=== PATIENT | female | born 1945 | race Caucasian/White ===

== ENCOUNTER 2018-05-19 11:51 | Observation (INO) | payer MEDICAID, MEDICARE ==
[2018-05-19 12:17] LABS: Hematocrit 44.1 % (37.0-47.0); Hemoglobin 14.4 gm/dL (12.5-16.0); Mean Cell Volume 89.6 fl (78-100); Mean Corpuscular Hemoglobin 29.3 pg (27-31); Mean Corpuscular Hgb Conc 32.7 g/dl (32-36); Mean Platelet Volume 10.1 fl (8-12.5); Neutrophil # 13.5 K/mm3 (1.3-6.0); Neutrophil % 84.2 % (42-75.0); Platelet Count 421 K/mm3 (150-450); Red Blood Count 4.92 M/mm3 (4.2-5.4); Red Cell Distribution Width 12.3 % (11.5-14.0)
[2018-05-19 12:18] LABS: Urine Bilirubin Negative (NEGATIVE); Urine Blood Negative /ul (NEGATIVE); Urine Ketone Negative (NEGATIVE); Urine Protein Negative (NEGATIVE); Urine Specific Gravity 1.025 SP.GR. (1.005-1.010); Urine Urobilinogen Normal (NORMAL)
[2018-05-19 12:33] LABS: Urine Appearance Cloudy (CLEAR); Urine Bacteria 3+; Urine Color Yellow; Urine Nitrite Positive (NEGATIVE); Urine RBC None Seen /hpf (0-5)
[2018-05-19 12:39] LABS: Albumin * 2.9 gm/dl (3.4-5.0); BUN/Creatinine Ratio 28.6 (9.0-21.6); Bilirubin, Total 0.5 mg/dL (0.0-1.1); Ca. Corrected For Albumin 9.3 mg/dL (8.4-10.2); Calcium * 8.7 mg/dL (7.9-10.9); Magnesium 2.1 mg/dL (1.2-2.8); Total Protein 6.9 gm/dL (6.2-8.2)
--- NOTE | 2018-05-19 13:42 | ERNOTE ---
Medical Problem HPI - General Chief Complaint: General Assessment Time Seen by Provider: 05/19/18 11:53 Source: family, EMS Exam Limitations: no limitations - Immun/Allergies/Home Medications Immunizations: IMMUNIZATION HX Immunizations Up to Date Yes History of Influenza Vaccine Yes Hx Pneumococcal Vaccination Yes Allergies/Adverse Reactions: Allergies No Known Allergies Allergy (Verified 05/08/18 07:58) Home Medications: HOME MEDICATIONS acetaminophen 325 mg tablet 650 mg PO Q4H PRN tab 05/08/18 [Last Taken Unknown] atorvastatin 10 mg tablet 10 mg PO DAILY 05/08/18 [Last Taken Unknown] dipyridamole 50 mg tablet 100 mg PO QID tab 05/08/18 [Last Taken Unknown] escitalopram 5 mg tablet 5 mg PO DAILY 05/08/18 [Last Taken Unknown] levetiracetam 750 mg tablet 750 mg PO BID 05/08/18 [Last Taken Unknown] levothyroxine 25 mcg capsule 25 mcg PO DAILY 05/08/18 [Last Taken Unknown] lorazepam 0.5 mg tablet 0.5 mg PO TID 05/08/18 [Last Taken Unknown] metoprolol tartrate 25 mg tablet 25 mg PO BID 05/08/18 [Last Taken Unknown] miscellaneous medical supply misc See Dose Instructions .ROUTE .MEDSUPPLY #1 ea 05/08/18 [Last Taken Unknown] miscellaneous medical supply misc See Dose Instructions .ROUTE .MEDSUPPLY #1 ea 05/08/18 [Last Taken Unknown] olanzapine 5 mg tablet 5 mg PO QPM 05/08/18 [Last Taken Unknown] hydrocodone 5 mg-acetaminophen 325 mg tablet 1 tab PO Q6H PRN #30 tab 05/15/18 [ Last Taken Unknown] - History of Present History Narrative: Patient was seen here approximately 10 days ago from a fall, where she had fractured both her pelvis as well as her sacrum. Family was relatively insistent that she go home, and she went home on pain medication and is managed to deteriorate since going home. She now comes in in a slightly weakened condition prior to the fracture, she has bilateral decubitus ulcers is having even a worse time trying to move around. She is a difficult patient to assess because of the previous strokes and expressive aphasia. Timing: getting worse Severity: moderate Review of Systems - Review of Systems Constitutional: Present: See HPI EYE: Present: no symptoms reported ENT: Present: no symptoms reported Respiratory: Present: no symptoms reported Cardiology: Present: no symptoms reported Gastrointestinal/Abdominal: Present: no symptoms reported Genitourinary: Present: no symptoms reported Musculoskeletal: Present: See HPI Skin: Present: no symptoms reported Neurological: Present: See HPI Endocrine: Present: no symptoms reported Hematologic/Lymphatic: Present: no symptoms reported Psych: Present: no symptoms reported Medical History (Last Updated 05/19/18 @ 11:54 by Jermaine Garcia RN) Aphasia CVA (cerebral vascular accident) Onset Date: ~07/2014 Dysphagia Hemiparesis Hip fracture Hypercholesteremia Left-sided neglect Mitral regurgitation Paresis Seizure disorder Sinus tachycardia Speech disturbance Epilepsy Hyperlipidemia History of MRSA infection Surgical History: Surgical History (Last Reviewed 05/19/18 @ 11:54 by Jermaine Garcia RN) History of esophagogastroduodenoscopy (EGD) Onset Date: ~08/30/15 Hx of colonoscopy Onset Date: Unknown S/P percutaneous endoscopic gastrostomy (PEG) tube placement Onset Date: ~ Family History: Family History (Last Updated 05/08/18 @ 11:01 by Laurie Murray) Mother Breast cancer CVA (cerebral vascular accident) Sister Breast cancer Brother Colon cancer Social History: Preferred Language Macedonian Do you have any orthodox or No cultural preference? Smoking Status Former smoker Abuse History No History of abuse Psych History Hx of Anxiety,Hx of Depression Alcohol Use sober Physical Exam - Physical Exam General Appearance: Present: wd/wn, alert, moderate distress - possibly, although the only way to tell for certain is with a grimace and the moaning that we have listed for the patient Eye Exam: Normal inspection: bilateral, PERRL: bilateral Ears, Nose, Throat: Present: normal ENT inspection, H, normal pharynx Neck: Present: normal inspection, nontender Respiratory: Present: no respiratory distress, normal breath sounds, no accessory muscle use, chest nontender, lungs clear Cardiovascular/Chest: Present: regular rate, rhythm, no murmur, normal peripheral pulses Gastrointestinal/Abdominal: Present: normal bowel sounds, nontender, nondistended, soft, no organomegaly Rectal Exam: Present: deferred Back Exam: Present: normal inspection, normal range of motion Extremity Exam: Present: normal inspection, normal range of motion, no edema, bony tenderness Neurological Exam: Present: alert, oriented, normal mood/affect Skin Exam: Present: warm/dry, other - bilateral decubitus ulcers on both buttocks just adjacent to the sacrum Lymphatic Exam: Present: no adenopathy ED Progress - Results and Orders Patient's Lab Results:: I have reviewed the patient's lab results. - Vital Signs Patient's Vital Signs:: I have reviewed the patient's vital signs. Vital Signs: Vital Signs 05/19/18 11:51 05/19/18 12:36 05/19/18 12:45 Temperature 37 C 37 C 37 C Pulse Rate 102 H 102 H 92 Respiratory Rate 28 H 28 H 28 H Blood Pressure 133/77 131/81 122/80 O2 Sat by Pulse Oximetry 92 L 92 L 92 L 05/19/18 13:00 Temperature 37 C Pulse Rate 102 H Respiratory Rate 28 H Blood Pressure 137/83 O2 Sat by Pulse Oximetry 93 - X-Ray X-Ray #1 X-Ray: chest Interpretation: Reviewed by me X-Ray #2 X-Ray: foot Interpretation: Reviewed by me X-Ray #3 X-Ray: pelvis Interpretation: Reviewed by me - Progress/Reassessment Chief Complaint: General Assessment Plan - Plan Plan: Patient has clearly failed outpatient treatment and the family and the patient need more assistance in caring for this patient. She now has decubitus ulcers that according to the are worsening, she needs some form of PT/OT evaluation and perhaps ia egg crate mattress would be reasonable as well at home. Departure Clinical Impression: Failure of outpatient treatment, Intractable pain Pelvis fracture Qualifiers: Encounter type: initial encounter Pelvic bone location: pubis Sublocation of pubis: unspecified portion of pubis Fracture type: closed Laterality: left Qualified Code(s): S32.502A - Unspecified fracture of left pubis, initial encounter for closed fracture Sacral fracture, closed Qualifiers: Encounter type: subsequent encounter Zone of sacrum fracture: unspecified portion of sacrum Fracture healing: with routine healing Qualified Code(s): S32.10XD - Unspecified fracture of sacrum, subsequent encounter for fracture with routine healing UTI (urinary tract infection) Qualifiers: Urinary tract infection type: acute cystitis Hematuria presence: without hematuria Qualified Code(s): N30.00 - Acute cystitis without hematuria Decubitus ulcers Qualifiers: Pressure injury location: buttock Pressure injury stage: unspecified pressure injury stage Laterality: unspecified laterality Qualified Code(s): L89.309 - Pressure ulcer of unspecified buttock, unspecified stage - Departure Disposition: Still a patient Condition: Fair Referrals: Vasile Bullard MD [Primary Care Provider] -
[2018-05-19] MEDS ORDERED: fentaNYL CITRATE/PF 50 MCG/ML AMPUL IV ONE (13:47)
[2018-05-19] MEDS ORDERED: fentaNYL CITRATE/PF 50 MCG/ML AMPUL ONE (13:56)
[2018-05-19] MEDS: CIPROFLOXACIN IN 5 % DEXTROSE 400 MG/200 ML BAG IV SCH (14:54)
--- NOTE | 2018-05-19 16:53 | HP ---
Chief Complaint - Chief Complaint Date of Service: 05/19/18 Time of Service: 16:52 Chief Complaint: weakness and decubitus ulcers History of Present Illness: Ro Desouza, is a 73-year-old white female, who was admitted on 2017 for increasing weakness and decubitus ulcer. 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 Due to her mental status and aphasia, I am not able to get history and physical from the patient. It is based mostly on the emergency room notes and from the behavioral health case manager. 10 days prior to admission the patient fell down in the hospital and brought her to the [facility] practice clinic where she was found to have a pelvic fracture. The family insisted that she go home and have home health follow her up there. The brought her back today because he has noticed the patient is weaker and has developed sacral decubitus ulcers. In the ED , she was found to have UTI and was started on IV Cipro. She was then admitted for observation for pain control and PT/OT evaluation. Medical History (Last Updated 05/19/18 @ 11:54 by Jermaine Garcia RN) Aphasia CVA (cerebral vascular accident) Onset Date: ~07/2014 Dysphagia Hemiparesis Hip fracture Hypercholesteremia Left-sided neglect Mitral regurgitation Paresis Seizure disorder Sinus tachycardia Speech disturbance Epilepsy Hyperlipidemia History of MRSA infection Surgical History: Surgical History (Last Reviewed 05/19/18 @ 11:54 by Jermaine Garcia RN) History of esophagogastroduodenoscopy (EGD) Onset Date: ~08/30/15 Hx of colonoscopy Onset Date: Unknown S/P percutaneous endoscopic gastrostomy (PEG) tube placement Onset Date: ~ Family History: Family History (Last Updated 05/08/18 @ 11:01 by Laurie Murray) Mother Breast cancer CVA (cerebral vascular accident) Sister Breast cancer Brother Colon cancer Social History: Patient Lives/Resources Home Utilized Occupation retired Preferred Language Serbian Do you have any episcopal or No cultural preference? Smoking Status Former smoker Have you smoked in the past 12 No months Abuse History No History of abuse Psych History Hx of Anxiety,Hx of Depression Alcohol Use sober Review Of Systems (GEN) - Review of Systems Misc: All systems neg except as marked - Review of systems is unobtainable due to patient's mental status and aphasia. Immunizations: IMMUNIZATION HX Immunizations Up to Date Yes History of Influenza Vaccine Yes Hx Pneumococcal Vaccination Yes Allergies/Adverse Reactions: Allergies Allergy/AdvReac Type Severity Reaction Status Date / Time No Known Allergies Allergy Verified 05/08/18 07:58 Home Medications: HOME MEDICATIONS acetaminophen 325 mg tablet 650 mg PO Q4H PRN tab 05/08/18 [Last Taken Unknown] atorvastatin 10 mg tablet 10 mg PO DAILY 05/08/18 [Last Taken Unknown] dipyridamole 50 mg tablet 100 mg PO QID tab 05/08/18 [Last Taken Unknown] escitalopram 5 mg tablet 5 mg PO DAILY 05/08/18 [Last Taken Unknown] levetiracetam 750 mg tablet 750 mg PO BID 05/08/18 [Last Taken Unknown] levothyroxine 25 mcg capsule 25 mcg PO DAILY 05/08/18 [Last Taken Unknown] lorazepam 0.5 mg tablet 0.5 mg PO TID 05/08/18 [Last Taken Unknown] metoprolol tartrate 25 mg tablet 25 mg PO BID 05/08/18 [Last Taken Unknown] olanzapine 5 mg tablet 5 mg PO QPM 05/08/18 [Last Taken Unknown] hydrocodone 5 mg-acetaminophen 325 mg tablet 1 tab PO Q6H PRN #30 tab 05/15/18 [ Last Taken Unknown] Bisacodyl [Dulcolax Suppository] 10 mg RC DAILY PRN 05/19/18 [Last Taken Unknown ] Exam - Exam Vital Signs: Vital Signs - Last Taken Temp 37 C 05/19/18 14:03 Pulse 94 05/19/18 14:03 Resp 28 H 05/19/18 14:03 BP 120/63 05/19/18 14:03 Pulse Ox 93 05/19/18 14:03 Constitutional: Present: Alert - AAO x 1, Cooperative ENT Exam: Present: hearing grossly normal - looks at you with conversation Eye Exam: bilateral eye: normal inspection, PERRL, EOMI Neck: Present: supple Respiratory: Present: normal breath sounds, No rales, No wheezing Cardiovascular/Chest: Present: regular rate, rhythm, no JVD, no murmur Abdomen: Present: Normal bowel sounds, soft, nontender, nondistended Extremity: Present: no pedal edema, no calf tenderness Skin Exam: Present: other - decubitus ulcer, sacral area Neurologic: Present: alert, aphasia, motor weakness - left hemiparesis Diagnostic Studies: Abnormal Lab Results 05/19/18 05/19/18 05/19/18 Range/Units 12:01 12:14 12:14 WBC 16.0 H (4.0-10.5) K/mm3 Immature Gran # (Auto) 0.07 H (0.000-0.0310) K/mm3 Neutrophils % 84.2 H (42-75.0) % Lymphocytes % 8.3 L (20-51) % Neutrophils # 13.5 H (1.3-6.0) K/mm3 Lymphocytes # 1.33 L (1.5-3.5) k/mm3 BUN 28 H (3-23) mg/dL Est GFR (Non-Af Amer) 59 L (60-130) mL/min BUN/Creatinine Ratio 28.6 H (9.0-21.6) Random Glucose 160 H (70-110) mg/dL Alkaline Phosphatase 308 H (50-170) U/L Albumin 2.9 L (3.4-5.0) gm/dl Urine Nitrate Positive H (NEGATIVE) Ur Leukocyte Esterase 75 H (NEGATIVE) /ul Urine WBC 10-25 H (0-5) /hpf Ur Epithelial Cells 10-25 H (0-5) /hpf Urine Bacteria 3+ H (NONE) Laboratory Results WBC 16.0 K/mm3 (4.0-10.5) H 05/19/18 12:14 RBC 4.92 M/mm3 (4.2-5.4) 05/19/18 12:14 Hgb 14.4 gm/dL (12.5-16.0) 05/19/18 12:14 Hct 44.1 % (37.0-47.0) 05/19/18 12:14 MCV 89.6 fl (78-100) 05/19/18 12:14 MCH 29.3 pg (27-31) 05/19/18 12:14 MCHC 32.7 g/dl (32-36) 05/19/18 12:14 RDW 12.3 % (11.5-14.0) 05/19/18 12:14 Plt Count 421 K/mm3 (150-450) 05/19/18 12:14 MPV 10.1 fl (8-12.5) 05/19/18 12:14 Immature Gran % (Auto) 0.40 % (0.001-0.429) 05/19/18 12:14 Immature Gran # (Auto) 0.07 K/mm3 (0.000-0.0310) H 05/19/18 12:14 Neutrophils % 84.2 % (42-75.0) H 05/19/18 12:14 Lymphocytes % 8.3 % (20-51) L 05/19/18 12:14 Monocytes % 5.6 % (0.0-9) 05/19/18 12:14 Eosinophils % 1.0 % (0.0-3.0) 05/19/18 12:14 Basophils % 0.5 % (0.0-1.0) 05/19/18 12:14 Nucleated RBC % 0.0 k/mm3 (0-1) 05/19/18 12:14 Neutrophils # 13.5 K/mm3 (1.3-6.0) H 05/19/18 12:14 Lymphocytes # 1.33 k/mm3 (1.5-3.5) L 05/19/18 12:14 Monocytes # 0.9 k/mm3 (0.0-1.0) 05/19/18 12:14 Eosinophils # 0.2 k/mm3 (0.0-0.7) 05/19/18 12:14 Absolute Basophils 0.1 k/mm3 (0.0-0.1) 05/19/18 12:14 Sodium 138 mmol/L (132-142) 05/19/18 12:14 Plasma Sodium 139 mmol/L (130-142) 05/19/18 12:14 Potassium 4.0 mmol/L (3.4-4.6) 05/19/18 12:14 Chloride 103 mmol/L (97-106) 05/19/18 12:14 Carbon Dioxide 27.0 mmol/L (24-32.6) 05/19/18 12:14 Anion Gap 12.0 mmol/L (6.8-13.8) 05/19/18 12:14 BUN 28 mg/dL (3-23) H 05/19/18 12:14 Creatinine 0.98 mg/dL (0.4-1.4) 05/19/18 12:14 Est GFR (Non-Af Amer) 59 mL/min (60-130) L 05/19/18 12:14 BUN/Creatinine Ratio 28.6 (9.0-21.6) H 05/19/18 12:14 Random Glucose 160 mg/dL (70-110) H 05/19/18 12:14 Calcium 8.7 mg/dL (7.9-10.9) 05/19/18 12:14 Calcium Adj for Albumin 9.3 mg/dL (8.4-10.2) 05/19/18 12:14 Magnesium 2.1 mg/dL (1.2-2.8) 05/19/18 12:14 Total Bilirubin 0.5 mg/dL (0.0-1.1) 05/19/18 12:14 AST 26 U/L (0-48) 05/19/18 12:14 ALT 37 U/L (19-67) 05/19/18 12:14 Alkaline Phosphatase 308 U/L (50-170) H 05/19/18 12:14 Total Protein 6.9 gm/dL (6.2-8.2) 05/19/18 12:14 Albumin 2.9 gm/dl (3.4-5.0) L 05/19/18 12:14 Urine Color Yellow 05/19/18 12:01 Urine Appearance Cloudy (CLEAR) 05/19/18 12:01 Urine pH 6.0 pH (5.0-7.0) 05/19/18 12:01 Ur Specific [place] 1.025 SP.GR. (1.005-1.010) 05/19/18 12:01 Urine Protein Negative mg/dL (NEGATIVE) 05/19/18 12:01 Urine Glucose (UA) Negative mg/dL (NEGATIVE) 05/19/18 12:01 Urine Ketones Negative mg/dL (NEGATIVE) 05/19/18 12:01 Urine Blood Negative /ul (NEGATIVE) 05/19/18 12:01 Urine Nitrate Positive (NEGATIVE) H 05/19/18 12:01 Urine Bilirubin Negative mg/dl (NEGATIVE) 05/19/18 12:01 Urine Urobilinogen Normal EU/dl (NORMAL) 05/19/18 12:01 Ur Leukocyte Esterase 75 /ul (NEGATIVE) H 05/19/18 12:01 Urine RBC None seen /hpf (0-5) 05/19/18 12:01 Urine WBC 10-25 /hpf (0-5) H 05/19/18 12:01 Ur Epithelial Cells 10-25 /hpf (0-5) H 05/19/18 12:01 Urine Bacteria 3+ (NONE) H 05/19/18 12:01 Urine Culture Comments Culture to follow 05/19/18 12:01 Assessment/Plan - Assessment/Plan (1) Decubitus ulcers Problem: Acute Qualifiers: Pressure injury location: buttock Pressure injury stage: unspecified pressure injury stage Laterality: unspecified laterality Qualified Code(s): L89.309 - Pressure ulcer of unspecified buttock, unspecified stage (2) Pelvis fracture Problem: Acute Qualifiers: Encounter type: initial encounter Pelvic bone location: pubis Sublocation of pubis: unspecified portion of pubis Fracture type: closed Laterality: left Qualified Code(s): S32.502A - Unspecified fracture of left pubis, initial encounter for closed fracture (3) Sacral fracture, closed Problem: Acute Qualifiers: Encounter type: subsequent encounter Zone of sacrum fracture: unspecified portion of sacrum Fracture healing: with routine healing Qualified Code(s): S32.10XD - Unspecified fracture of sacrum, subsequent encounter for fracture with routine healing (4) UTI (urinary tract infection) Problem: Acute Qualifiers: Urinary tract infection type: acute cystitis Hematuria presence: without hematuria Qualified Code(s): N30.00 - Acute cystitis without hematuria (5) Failure of outpatient treatment Problem: Acute (6) CVA, old, aphasia Problem: Chronic
[2018-05-19] MEDS ORDERED: ACETAMINOPHEN 325 MG TABLET PO PRN (18:04)
[2018-05-19] MEDS ORDERED: HYDROcodone/ACETAMINOPHEN 1 EACH TABLET PO PRN (18:04)
[2018-05-19] MEDS ORDERED: BISACODYL 10 MG SUPP.RECT RC PRN (18:04)
[2018-05-19] MEDS ORDERED: levETIRAcetam 100 MG/ML BTL PO SCH (21:00)
[2018-05-19] MEDS ORDERED: levETIRAcetam 500 MG TABLET ONE (21:16)
[2018-05-19] MEDS: DIPYRIDAMOLE 25 MG TABLET PO SCH (21:19)
[2018-05-19] MEDS: METOPROLOL TARTRATE 25 MG TABLET PO SCH (21:20)
[2018-05-19] MEDS: levETIRAcetam 500 MG TABLET PO SCH (23:00)
[2018-05-20] MEDS: CIPROFLOXACIN IN 5 % DEXTROSE 400 MG/200 ML BAG IV SCH (01:36)
[2018-05-20 04:40] LABS: Hematocrit 40.2 % (37.0-47.0); Hemoglobin 13.2 gm/dL (12.5-16.0); Mean Cell Volume 88.9 fl (78-100); Mean Corpuscular Hemoglobin 29.2 pg (27-31); Mean Corpuscular Hgb Conc 32.8 g/dl (32-36); Neutrophil # 9.2 K/mm3 (1.3-6.0); Neutrophil % 74.8 % (42-75.0); Platelet Count 404 K/mm3 (150-450); Red Blood Count 4.52 M/mm3 (4.2-5.4); Red Cell Distribution Width 12.4 % (11.5-14.0); White Blood Count 12.3 K/mm3 (4.0-10.5)
[2018-05-20 04:52] LABS: Albumin * 2.7 gm/dl (3.4-5.0); Anion Gap 9.8 mmol/L (6.8-13.8); BUN/Creatinine Ratio 30.1 (9.0-21.6); Bilirubin, Total 0.6 mg/dL (0.0-1.1); Ca. Corrected For Albumin 9.1 mg/dL (8.4-10.2); Calcium * 8.4 mg/dL (7.9-10.9); Carbon Dioxide 28.9 mmol/L (24-32.6); Potassium 3.7 mmol/L (3.4-4.6); Total Protein 6.5 gm/dL (6.2-8.2)
--- NOTE | 2018-05-20 05:39 | PN ---
<ManojJennifer - Last Filed: 05/20/18 06:39> Subjective - Date and Time Seen Date: 05/20/18 Time: 05:33 Subjective Narrative: patient seen this morning in bed no acute distress. Objective - Review of Systems Generalized/Overall Review: Reports: No Symptoms Reported - unable to obtain ROS information as pt is aphasic - Vitals Vitals: Last Vital Signs Temp 36.6 C 05/20/18 03:20 Pulse 85 05/20/18 03:20 Resp 18 05/20/18 03:20 BP 118/58 05/20/18 03:20 Pulse Ox 95 05/20/18 03:20 - Abnormal Lab Findings Abnormal Lab Findings: Abnormal Lab Results 05/19/18 05/19/18 05/19/18 Range/Units 12:01 12:14 12:14 WBC 16.0 H (4.0-10.5) K/mm3 Immature Gran # (Auto) 0.07 H (0.000-0.0310) K/mm3 Neutrophils % 84.2 H (42-75.0) % Lymphocytes % 8.3 L (20-51) % Neutrophils # 13.5 H (1.3-6.0) K/mm3 Lymphocytes # 1.33 L (1.5-3.5) k/mm3 BUN 28 H (3-23) mg/dL Est GFR (Non-Af Amer) 59 L (60-130) mL/min BUN/Creatinine Ratio 28.6 H (9.0-21.6) Random Glucose 160 H (70-110) mg/dL Alkaline Phosphatase 308 H (50-170) U/L Albumin 2.9 L (3.4-5.0) gm/dl Urine Nitrate Positive H (NEGATIVE) Ur Leukocyte Esterase 75 H (NEGATIVE) /ul Urine WBC 10-25 H (0-5) /hpf Ur Epithelial Cells 10-25 H (0-5) /hpf Urine Bacteria 3+ H (NONE) 05/20/18 05/20/18 Range/Units 04:10 04:10 WBC 12.3 H D (4.0-10.5) K/mm3 Immature Gran # (Auto) 0.05 H (0.000-0.0310) K/mm3 Neutrophils % (42-75.0) % Lymphocytes % 16.1 L (20-51) % Neutrophils # 9.2 H (1.3-6.0) K/mm3 Lymphocytes # (1.5-3.5) k/mm3 BUN (3-23) mg/dL Est GFR (Non-Af Amer) (60-130) mL/min BUN/Creatinine Ratio 30.1 H (9.0-21.6) Random Glucose (70-110) mg/dL Alkaline Phosphatase 295 H (50-170) U/L Albumin 2.7 L (3.4-5.0) gm/dl Urine Nitrate (NEGATIVE) Ur Leukocyte Esterase (NEGATIVE) /ul Urine WBC (0-5) /hpf Ur Epithelial Cells (0-5) /hpf Urine Bacteria (NONE) - Exam Constitutional: Present: Cooperative - follow simple commands, No distress ENT Exam: Present: hearing grossly normal, other - aphasia Neck: Present: non-tender Breasts: Present: Exam deferred Respiratory: Present: chest non-tender, lungs clear, normal breath sounds, no respiratory distress Cardiovascular/Chest: Present: normal peripheral pulses, regular rate, rhythm, no edema, systolic murmur Abdomen: Present: Normal bowel sounds, soft, nontender /Rectal: Present: Exam deferred Extremity: Present: other - Limited range of motion Skin Exam: Present: warm/dry, other - sacral ulcer Neurologic: Present: normal mood/affect, aphasia, motor weakness, sensory deficit Appearance: Present: appropriate appearance Eye contact: Present: good eye contact Assessment/Plan - Problems/Diagnosis (1) Pelvis fracture Problem: Acute Qualifiers: Encounter type: initial encounter Pelvic bone location: pubis Sublocation of pubis: unspecified portion of pubis Fracture type: closed Laterality: left Qualified Code(s): S32.502A - Unspecified fracture of left pubis, initial encounter for closed fracture Narrative: X-Ray pelvis: 1. Stable fractures of the left sacrum, left pubic bone. 2. No new acute osseous finding. Evaluation somewhat limited by positioning. pain control and Pt/OT eval and treatment (2) UTI (urinary tract infection) Problem: Acute Qualifiers: Urinary tract infection type: acute cystitis Hematuria presence: without hematuria Qualified Code(s): N30.00 - Acute cystitis without hematuria Narrative: on adm WBC 16.0--->12.0 continue with Cipro antibiotics monitor CBC (3) Decubitus ulcers Problem: Acute Qualifiers: Pressure injury location: buttock Pressure injury stage: unspecified pressure injury stage Laterality: unspecified laterality Qualified Code(s): L89.309 - Pressure ulcer of unspecified buttock, unspecified stage Narrative: wound care Activity increased ambulating. (4) Failure of outpatient treatment Problem: Acute (5) Intractable pain Problem: Acute <Trish Maciaschloe - Last Filed: 05/26/18 10:57> Objective - Vitals Vitals: Last Vital Signs Temp 37.0 C 05/20/18 14:00 Pulse 96 05/20/18 14:00 Resp 18 05/20/18 14:00 BP 115/66 05/20/18 14:00 Pulse Ox 94 05/20/18 14:00 Assessment/Plan - Problems/Diagnosis (1) Decubitus ulcers Problem: Acute Qualifiers: Pressure injury location: buttock Pressure injury stage: unspecified pressure injury stage Laterality: unspecified laterality Qualified Code(s): L89.309 - Pressure ulcer of unspecified buttock, unspecified stage (2) Pelvis fracture Problem: Acute Qualifiers: Encounter type: initial encounter Pelvic bone location: pubis Sublocation of pubis: unspecified portion of pubis Fracture type: closed Laterality: left Qualified Code(s): S32.502A - Unspecified fracture of left pubis, initial encounter for closed fracture (3) Sacral fracture, closed Problem: Acute Qualifiers: Encounter type: subsequent encounter Zone of sacrum fracture: unspecified portion of sacrum Fracture healing: with routine healing Qualified Code(s): S32.10XD - Unspecified fracture of sacrum, subsequent encounter for fracture with routine healing (4) UTI (urinary tract infection) Problem: Acute Qualifiers: Urinary tract infection type: acute cystitis Hematuria presence: without hematuria Qualified Code(s): N30.00 - Acute cystitis without hematuria (5) Failure of outpatient treatment Problem: Acute (6) CVA, old, aphasia Problem: Chronic
[2018-05-20] MEDS ORDERED: LEVOTHYROXINE SODIUM 25 MCG TABLET PO SCH (07:00)
[2018-05-20] MEDS ORDERED: ROSUVASTATIN CALCIUM 10 MG TABLET PO SCH ×2 (09:00→21:00)
[2018-05-20] MEDS ORDERED: ESCITALOPRAM OXALATE 10 MG TAB PO SCH (09:00)
--- NOTE | 2018-05-20 09:23 | DS ---
(1) Decubitus ulcers Problem: Acute Qualifiers: Pressure injury location: buttock Pressure injury stage: unspecified pressure injury stage Laterality: unspecified laterality Qualified Code(s): L89.309 - Pressure ulcer of unspecified buttock, unspecified stage (2) Pelvis fracture Problem: Acute Qualifiers: Encounter type: initial encounter Pelvic bone location: pubis Sublocation of pubis: unspecified portion of pubis Fracture type: closed Laterality: left Qualified Code(s): S32.502A - Unspecified fracture of left pubis, initial encounter for closed fracture (3) Sacral fracture, closed Problem: Acute Qualifiers: Encounter type: subsequent encounter Zone of sacrum fracture: unspecified portion of sacrum Fracture healing: with routine healing Qualified Code(s): S32.10XD - Unspecified fracture of sacrum, subsequent encounter for fracture with routine healing (4) UTI (urinary tract infection) Problem: Acute Qualifiers: Urinary tract infection type: acute cystitis Hematuria presence: without hematuria Qualified Code(s): N30.00 - Acute cystitis without hematuria (5) Failure of outpatient treatment Problem: Acute (6) CVA, old, aphasia Problem: Chronic Description of Stay: Ro Desouza, is a 73-year-old white female, who was admitted on 2017 for increasing weakness and decubitus ulcer. 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 Due to her mental status and aphasia, I am not able to get history and physical from the patient. It is based mostly on the emergency room notes and from the case specialist. 10 days prior to admission the patient fell down in the hospital and brought her to the [facility] where she was found to have a pelvic fracture. The family insisted that she go home and have home health follow her up there. The brought her back today because he has noticed the patient is weaker and has developed sacral decubitus ulcers. In the ED , she was found to have UTI and was started on IV Cipro. She was then admitted for observation for pain control and PT/OT evaluation. We a wound consult and she is stable to be discharged and she will have daily wound care and daily coverage after applying daily Santyl. She will also need a wheelchair for increased mobility. Procedures Performed: none Results and Findings: [facility] 05/19/18 12:01 Urine,Catheterized Urine Culture - Preliminary Gram Negative Bacilli Lab Pending Results 05/19/18 12:01: Urine Color Yellow, Urine Appearance Cloudy, Urine pH 6.0, Ur Specific [place] 1.025, Urine Protein Negative, Urine Glucose (UA) Negative, Urine Ketones Negative, Urine Blood Negative, Urine Nitrate Positive H, Urine Bilirubin Negative, Urine Urobilinogen Normal, Ur Leukocyte Esterase 75 H, Urine RBC None seen, Urine WBC 10-25 H, Ur Epithelial Cells 10-25 H, Urine Bacteria 3+ H, Urine Culture Comments Culture to follow 05/19/18 12:14: WBC 16.0 H, RBC 4.92, Hgb 14.4, Hct 44.1, MCV 89.6, MCH 29.3, MCHC 32.7, RDW 12.3, Plt Count 421, MPV 10.1, Immature Gran % (Auto) 0.40, Immature Gran # (Auto) 0.07 H, Neutrophils % 84.2 H, Lymphocytes % 8.3 L, Monocytes % 5.6, Eosinophils % 1.0, Basophils % 0.5, Nucleated RBC % 0.0, Neutrophils # 13.5 H, Lymphocytes # 1.33 L, Monocytes # 0.9, Eosinophils # 0.2, Absolute Basophils 0.1 05/19/18 12:14: Sodium 138, Plasma Sodium 139, Potassium 4.0, Chloride 103, Carbon Dioxide 27.0, Anion Gap 12.0, BUN 28 H, Creatinine 0.98, Est GFR (Non-Af Amer) 59 L, BUN/Creatinine Ratio 28.6 H, Random Glucose 160 H, Calcium 8.7, Calcium Adj for Albumin 9.3, Magnesium 2.1, Total Bilirubin 0.5, AST 26, ALT 37 , Alkaline Phosphatase 308 H, Total Protein 6.9, Albumin 2.9 L 05/20/18 04:10: Sodium 136, Plasma Sodium 136, Potassium 3.7, Chloride 101, Carbon Dioxide 28.9, Anion Gap 9.8, BUN 22, Creatinine 0.73, Est GFR (Non-Af Amer) 83 D, BUN/Creatinine Ratio 30.1 H, Random Glucose 110 D, Calcium 8.4, Calcium Adj for Albumin 9.1, Total Bilirubin 0.6, AST 26, ALT 32, Alkaline Phosphatase 295 H, Total Protein 6.5, Albumin 2.7 L 05/20/18 04:10: WBC 12.3 H D, RBC 4.52, Hgb 13.2, Hct 40.2, MCV 88.9, MCH 29.2, MCHC 32.8, RDW 12.4, Plt Count 404, MPV 10.0, Immature Gran % (Auto) 0.40, Immature Gran # (Auto) 0.05 H, Neutrophils % 74.8, Lymphocytes % 16.1 L, Monocytes % 7.1, Eosinophils % 1.0, Basophils % 0.6, Nucleated RBC % 0.0, Neutrophils # 9.2 H, Lymphocytes # 1.99, Monocytes # 0.9, Eosinophils # 0.1, Absolute Basophils 0.1 Discharge Location: Home Disposition: Home Health Service [facility] Agency: [facility] Home Health Condition: Fair Face to Face Encounter completed per [facility] Guidelines: Yes Discharge Activity: Activity as tolerated Discharge Diet: Other - Pureed diet Referrals: Vasile Bullard MD [Primary Care Provider] - Additional Patient Instructions (free text): [facility] new. Please fax orders and face to face and call report to ext [phone] when discharged.-Please make TCM appointment unless prison discharge. Thank you ! Kathi at [phone]. Follow up with her PCP in 2 weeks. Wound Care Instructions per Elena Boyd: Apply santyl to open area on sacrum. cover with gauze and secure with tape. change dressing daily. wash area with soap and water at dressing change. continue with excellent off-loading. She will need wheelchair for increased mobility and will help with off loading of her decubitus ulcers. Prescriptions (Any new or edited meds): Ciprofloxacin HCl [Cipro] 250 mg PO BID 3 Days #3 tab Collagenase Clostridium Hist. [Santyl] 1 appl TP DAILY #1 oint...g. Complete Home Medications List: Complete Home Medication List: acetaminophen 325 mg tablet 650 mg PO Q4H PRN tab 05/08/18 atorvastatin 10 mg tablet 10 mg PO DAILY 05/08/18 dipyridamole 50 mg tablet 100 mg PO QID tab 05/08/18 escitalopram 5 mg tablet 5 mg PO DAILY 05/08/18 levetiracetam 750 mg tablet 750 mg PO BID 05/08/18 levothyroxine 25 mcg capsule 25 mcg PO DAILY 05/08/18 lorazepam 0.5 mg tablet 0.5 mg PO TID 05/08/18 metoprolol tartrate 25 mg tablet 25 mg PO BID 05/08/18 olanzapine 5 mg tablet 5 mg PO QPM 05/08/18 hydrocodone 5 mg-acetaminophen 325 mg tablet 1 tab PO Q6H PRN #30 tab 05/15/18 Bisacodyl [Dulcolax Suppository] 10 mg RC DAILY PRN 05/19/18 Ciprofloxacin HCl [Cipro] 250 mg PO BID 3 Days #3 tab 05/20/18 Collagenase Clostridium Hist. [Santyl] 1 appl TP DAILY #1 oint...g. 05/20/18
[2018-05-20] MEDS: LORazepam 0.5 MG TABLET PO SCH ×2 (09:32→13:05)
[2018-05-20] MEDS: METOPROLOL TARTRATE 25 MG TABLET PO SCH (09:32)
[2018-05-20] MEDS: levETIRAcetam 500 MG TABLET PO SCH (09:33)
[2018-05-20] MEDS: DIPYRIDAMOLE 25 MG TABLET PO SCH ×2 (09:33→13:06)
--- NOTE | 2018-05-20 14:03 | CONS ---
[facility] - General Date of Service: 05/20/18 Source: family Exam Limitations: physical impairment - History of Present Illness Initial Comments: Patient is a 73 year old female, who fell approximately ten days ago. This resulted in a sacral and pelvic fracture. The patient was living at home, with the assistance of her family, however they felt her health was deteriorating. She presented to the Emergency Department for evaluation. She was evaluated to find an ulcer on her sacrum and a UTI. The patient was admitted for further care. Her past medical history includes several strokes, that have resulted in limited mobility and aphasia. The patient's is present to provide the medical history, as the patient is not able to. He states that the open wound on the sacrum developed 1-2 weeks ago. He is treating the area with antibiotic cream and off-loading. He does not think she is having pain associated with the area. He denies any difficulty with healing ulcers in the past. Timing/Duration: changing over time Allergies/Adverse Reactions: Allergies No Known Allergies Allergy (Verified 05/08/18 07:58) Home Medications: Home Medications Medication Instructions Recorded Last Taken acetaminophen 325 mg tablet 650 mg PO Q4H PRN tab 05/08/18 Unknown atorvastatin 10 mg tablet 10 mg PO DAILY 05/08/18 Unknown dipyridamole 50 mg tablet 100 mg PO QID tab 05/08/18 Unknown escitalopram 5 mg tablet 5 mg PO DAILY 05/08/18 Unknown levetiracetam 750 mg tablet 750 mg PO BID 05/08/18 Unknown levothyroxine 25 mcg capsule 25 mcg PO DAILY 05/08/18 Unknown lorazepam 0.5 mg tablet 0.5 mg PO TID 05/08/18 Unknown metoprolol tartrate 25 mg tablet 25 mg PO BID 05/08/18 Unknown olanzapine 5 mg tablet 5 mg PO QPM 05/08/18 Unknown hydrocodone 5 mg-acetaminophen 325 1 tab PO Q6H PRN #30 tab 05/15/18 Unknown mg tablet Bisacodyl [Dulcolax Suppository] 10 mg RC DAILY PRN 05/19/18 Unknown Ciprofloxacin HCl [Cipro] 250 mg PO BID 3 Days #3 tab 05/20/18 Unknown Collagenase Clostridium Hist. 1 appl TP DAILY #1 oint...g. 05/20/18 Unknown [Santyl] Procedures Insertion of Feeding Device into Stomach, Percutaneous Approach (08/30/15) Medications - Medications Current Medications: Current Medications Dipyridamole (Persantine) 100 mg PO QID [facility] Stop: 06/18/18 21:01 Last Admin: 05/20/18 13:06 Dose: 100 mg Escitalopram Oxalate (Lexapro) 5 mg PO DAILY [facility] Stop: 06/19/18 09:01 Last Admin: 05/20/18 09:33 Dose: 5 mg Ciprofloxacin/Dextrose (Cipro) 400 mg in 200 mls @ 200 mls/hr IV Q12H [facility]; Protocol Stop: 06/18/18 14:01 Last Infusion: 05/20/18 02:36 Dose: Infused Levetiracetam (Keppra) 750 mg PO BID [facility] Stop: 06/18/18 21:46 Last Admin: 05/20/18 09:33 Dose: 750 mg Levothyroxine Sodium (Synthroid) 25 mcg PO DAILY@0700 [facility] Stop: 06/19/18 07:01 Last Admin: 05/20/18 07:39 Dose: 25 mcg Lorazepam (Ativan) 0.5 mg PO TID [facility] Stop: 06/19/18 09:01 Last Admin: 05/20/18 13:05 Dose: 0.5 mg Metoprolol Tartrate (Lopressor) 25 mg PO BID [facility] Stop: 06/18/18 21:01 Last Admin: 05/20/18 09:32 Dose: 25 mg Review of Systems - Review of Systems Narrative: unable to obtain, patient does not speak Physical Examination - Exam Vital Signs: Vital Signs - Last Taken Temp 36.7 C 05/20/18 11:39 Pulse 86 05/20/18 11:39 Resp 20 05/20/18 11:39 BP 116/62 05/20/18 11:39 Pulse Ox 96 05/20/18 11:39 O2 Oxygen Delivery Method Room Air Constitutional: Present: Alert, No distress ENT Exam: Present: hearing grossly normal - patient does appear to follow conversation and makes eye contact Skin Exam: Present: other - there is an open ulcer on the sacrum measuring ~5.0 x 3.5cm. moderate amount of yellow necrosis. small amount of granulation tissue present. minimal drainage. no erythema. no bone or tendon visible. it is over a bony prominence. - Results and Findings: Lab/Microbiology results last 24 hrs: Abnormal/Pending Laboratory Last 24 HRS 05/20/18 05/20/18 04:10 04:10 WBC 12.3 H D Immature Gran # (Auto) 0.05 H Lymphocytes % 16.1 L Neutrophils # 9.2 H BUN/Creatinine Ratio 30.1 H Alkaline Phosphatase 295 H Albumin 2.7 L Culture 05/19/18 13:14 Blood Culture - Preliminary Blood NO GROWTH 24 HOURS 05/19/18 12:14 Blood Culture - Preliminary Blood NO GROWTH 24 HOURS 05/19/18 12:01 Urine Culture - Preliminary Urine,Catheterized Gram Negative Bacilli - Assessments/Findings (1) Decubitus ulcers Problem: Acute Qualifiers: Pressure injury location: buttock Pressure injury stage: unspecified pressure injury stage Laterality: unspecified laterality Qualified Code(s): L89.309 - Pressure ulcer of unspecified buttock, unspecified stage (2) Pressure ulcer of sacral region, stage 2 Diagnosis(s): Due to the amount of yellow necrosis present, recommend using Santyl. This will be applied to the area daily, and covered with gauze, secured with tape. They will wash the area with soap and water at the daily dressing changes. Continue with the excellent off-loading. This was reviewed with the patient's as well. We would be happy to continue her care as an out-patient in the [facility], if needed. Problem: Acute
[2018-05-20 15:07] VITALS: BP 115/66
[2018-05-20] MEDS ORDERED: OLANZapine 5 MG TABLET PO SCH (17:00)
== END 2018-05-20 14:45 | disposition home health service (06) ==
LOC: ER 11:51 → MS 11:51
PROVIDERS: ADMIT Internal Medicine; ATTEND Internal Medicine
DX: B96.20 Unspecified Escherichia coli [E. coli] as the cause of diseases classified elsewhere; Z68.21 Body mass index [BMI] 21.0-21.9, adult; L89.152 Pressure ulcer of sacral region, stage 2; S32.592D Other specified fracture of left pubis, subsequent encounter for fracture with routine healing; N30.00 Acute cystitis without hematuria; G89.11 Acute pain due to trauma; S32.512D Fracture of superior rim of left pubis, subsequent encounter for fracture with routine healing; R53.1 Weakness; S32.19XD Other fracture of sacrum, subsequent encounter for fracture with routine healing; L89.309 Pressure ulcer of unspecified buttock, unspecified stage; I69.320 Aphasia following cerebral infarction; Z87.891 Personal history of nicotine dependence
CPT/HCPCS: 36415; 71010; 71045; 72170; 73630; 80053; 81001; 83735; 85025; 87040; 87077; 87081; 87086; 87186; 96365; 96366; 97162; 97166; 97530; 99213; 99285; G0378; G8978; G8979; G8980; G8987; G8988; G8989